=== PATIENT | male | born 1990 | race Caucasian/White ===

== ENCOUNTER 2016-12-06 07:39 | Emergency (ER) | payer MEDICAID ==
[2016-12-06 07:55] VITALS: BP 132/88
[2016-12-06] MEDS ORDERED: LORazepam 1 MG Tab PO ONE (08:27)
[2016-12-06] MEDS ORDERED: LORazepam 1 MG Tab ONE (08:31)
--- NOTE | 2016-12-06 08:35 | EDM.PDOC ---
ED [facility] Behavioral Health - General Chief Complaint: Behavioral/Psych Stated Complaint: MENTAL EVALUATION Time Seen by Provider: 12/06/16 08:29 Source of Information: Reports: Patient Exam Limitations: Reports: No limitations - History of Present Illness INITIAL COMMENTS - FREE TEXT/NARRATIVE: 26-year-old male tends the ED with complaints of increased suicidal ideation and insomnia. Patient reports that he has had posttraumatic stress disorder diagnosis he was a child at age 3. Subsequently has had diagnoses of manic bipolar disorder. He quit taking medications a year ago due to their adverse effects. I believe it was Abilify at that time. Over the last several weeks he' s not been doing very well. He was started on Strattera 80 mg once a day one week ago and is feeling much worse. Strattera at is a stimulant in well-known to aggravate underlying depression and can precipitate manic phase of bipolar affective disorder. Apparently has a history of attention deficit disorder with hyperactivity and is told that this would settle him down but appears to have aggravated his underlying hypomania state. Patient at this time feels excessive mood swings. Suicidal ideation is present most days of the last 3 days. Doesn't have any definitive plan. Entered into a discussion with him but he he does not want to go to [place] to be admitted. Would like to try medications as an outpatient. In the meantime I'm going to start him on citalopram 20 mg in the morning and use Xanax 1 mg strength at bedtime and as needed during the day for relief of anxiety q. 8 hours when necessary. Advised to return to the ED if suicidal ideation symptoms are worsening or if he feels he is going to harm himself. Onset of Symptoms: Reports: other (Gradually getting worse over the last several weeks but much worse over the last week since starting Strattera 80 mg once a day) Duration of Symptoms: Reports: Chronic, Other (Worsening since starting Strattera 80 mg a day for) Severity: moderate Context, Behavioral Health: Reports: other (Spent in [place] for a month and not able to find employment as of yet. He is living alone.). Denies: living situation, school/work, family dynamics Associated Symptoms: Reports: anxiety, depression, decreased concentration, insomnia, suicidal thought. Denies: hallucinations, auditory, homicidal thoughts, hallucinations, visual, paranoia Treatments TROMPER: Reports: Other (see below) - SAD Persons Scale (SPS) SPS Sex: Male SPS Age: Between 18-65 Years of Age SPS Depression: Yes SPS Previous Suicide Attempts: Yes SPS Alcohol Abuse/Drug Abuse: No SPS Rational Thinking Loss: Yes SPS Social Support Deficit: No SPS Organized Suicide Plan: No SPS No Spouse/Significant Other: No SPS Sickness: No SPS Sad Person Scale Score: 4 - Related Data Allergies Allergy/AdvReac Type Severity Reaction Status Date / Time No Known Allergies Allergy Verified 12/06/16 07:48 Home Medications: Home Meds ALPRAZolam [Xanax] 1 mg PO Q8H #30 tablet 12/06/16 [Rx] Citalopram [Celexa] 20 mg PO DAILY #30 tablet 12/06/16 [Rx] atoMOXetine HCl [Strattera] 80 mg PO DAILY 12/06/16 [History] Past Medical History Psychiatric History: Reports: ADHD, Bipolar, Depression, PTSD - Past Surgical History HEENT Surgical History: Reports: Tonsillectomy Other Musculoskeletal Surgeries/Procedures:: bilaterl knee surgery Social & Family History - Tobacco Use Smoking Status *Q: Former Smoker Used Tobacco, but Quit: No - Caffeine Use Caffeine Use: Reports: None, Coffee - Recreational Drug Use Recreational Drug Use: No - Living Situation & Occupation Living situation: Reports: single Occupation: unemployed ED ROS GENERAL - Review of Systems Review Of Systems: See Below Constitutional: Reports: malaise, weakness, fatigue, decreased appetite. Denies : fever, chills, weight loss HEENT: Reports: No symptoms Respiratory: Reports: No Symptoms Cardiovascular: Reports: No symptoms Endocrine: Reports: no symptoms, fatigue GI/Abdominal: Reports: Decreased appetite : Reports: no symptoms Musculoskeletal: Reports: no symptoms Skin: Reports: no symptoms Psychiatric: Reports: Anxiety, Depression, Mood lability, Suicidal ideation Hematologic/Lymphatic: Reports: no symptoms Immunologic: Reports: no symptoms ED EXAM, BEHAVIORAL HEALTH - Physical Exam Exam: See Below Exam Limited By: No limitations General Appearance: alert, WD/WN, moderate distress (Tearful and obviously suffering quite significant mood swings with inability to decide what is best for him at this time) Throat/Mouth: Normal inspection, Normal lips, Normal teeth, Normal oropharynx Head: atraumatic, normocephalic, sinus tenderness Neck: supple, non-tender, full range of motion Respiratory/Chest: no respiratory distress, lungs clear, normal breath sounds, no accessory muscle use Cardiovascular: normal peripheral pulses, regular rate, rhythm, no edema, no murmur GI/Abdominal: normal bowel sounds, soft, non tender, no organomegaly, no distention, no abnormal bruit, no mass Back Exam: normal inspection, full range of motion Extremities: normal inspection, normal range of motion, non-tender, no pedal edema, normal capillary refill Neurological: alert, normal mood/affect, CN II-XII intact, normal cognition, normal reflexes, oriented x 3 Psychiatric: oriented, tearful, poor eye contact, suicidal thoughts. No: catholic delusions, suicidal plan, tangential thoughts, auditory hallucinations , visual hallucinations, grandiose thoughts, threatening behavior, other Skin Exam: Warm, Dry, Intact, Normal color, No rash COURSE, BEHAVIORAL HEALTH COMP - Course Vital Signs: Last Vital Signs Temp 36.9 C 12/06/16 07:50 Pulse 77 12/06/16 07:50 Resp 12 12/06/16 07:50 BP 132/88 12/06/16 07:50 Pulse Ox 100 12/06/16 07:50 Orders, Labs, Meds: Laboratory Tests 12/06/16 12/06/16 Range/Units 07:35 07:35 WBC 10.44 H (4.23-9.07) K/mm3 RBC 5.21 (4.63-6.08) M/mm3 Hgb 15.4 (13.7-17.5) gm/L Hct 46.7 (40.1-51.0) % MCV 89.6 (79.0-92.2) fl MCH 29.6 (25.7-32.2) pg MCHC 33.0 (32.2-35.5) g/dl RDW Std Deviation 40.8 (35.1-43.9) fL Plt Count 358 H (163-337) K/mm3 MPV 9.0 L (9.4-12.3) fl Neutrophils % (Manual) 51 (40-60) % Band Neutrophils % 0 (0-10) % Lymphocytes % (Manual) 32 (20-40) % Atypical Lymphs % 0 % Monocytes % (Manual) 0 L (2-10) % Eosinophils % (Manual) 17 H (0.8-7.0) % Basophils % (Manual) 0 L (0.2-1.2) Platelet Estimate Adequate RBC Morph Comment Normal Sodium 143 (136-145) mEq/L Potassium 3.9 (3.5-5.1) mEq/L Chloride 107 (98-107) mEq/L Carbon Dioxide 27 (21-32) mEq/L Anion Gap 12.9 (5-15) BUN 16 (7-18) mg/dL Creatinine 0.9 (0.7-1.3) mg/dL Est Cr Clr Drug Dosing 108.19 mL/min Estimated GFR (MDRD) > 60 (>60) mL/min BUN/Creatinine Ratio 17.8 (14-18) Glucose 82 (74-106) mg/dL Calcium 8.4 L (8.5-10.1) mg/dL Total Bilirubin 0.3 (0.2-1.0) mg/dL AST 17 (15-37) U/L ALT 38 (16-63) U/L Alkaline Phosphatase 79 (46-116) U/L Total Protein 6.6 (6.4-8.2) g/dl Albumin 3.7 (3.4-5.0) g/dl Globulin 2.9 gm/dL Albumin/Globulin Ratio 1.3 (1-2) TSH 3rd Generation 2.113 (0.358-3.74) uIU/mL Medications Discontinued Medications Generic Name Dose Route Start Last Admin Trade Name Robq PRN Reason Stop Dose Admin Lorazepam 2 mg 12/06/16 08:27 12/06/16 08:32 Ativan PO 12/06/16 08:28 2 mg ONETIME ONE Administration Lorazepam Confirm 12/06/16 08:31 12/06/16 08:48 Ativan Administered 12/06/16 08:32 Not Given Dose 2 mg .ROUTE .STK-MED ONE Re-Assessment/Re-Exam: 26-year-old male presents the ED with increased suicidal ideation thoughts. Worsened since he started Strattera a week ago. Having trouble sleeping poor appetite. Frustrated by inability to find work for the last month since she's been in [employer]. He is suffering suicidal ideation on intermittent basis but has no definitive plan to harm himself. Offered potential admission to psychiatric facility in [facility] but he feels he has not wanted to go ahead with this. He feels that he get started on some Xanax or benzodiazepines to get some sleep and rest and calm him down as he is feeling somewhat hypomania worsened by the Strattera. Decision made to start him on Xanax 1 mg twice daily first thing in the morning and bedtime. Third dose may also be taken at about 4pm if needed for anxiety. . Citalopram 20 mg once a day in the morning. Re-Assessment/Re-Exam Date: 12/06/16 (Spoke with the [facility] and his activity has a clinical consultant assigned to him. She will be in contact with him either today or tomorrow to have help set up closer followup. The Strattera of course is to be stopped.) Re-Assessment/Re-Exam Time: 09:32 (Labs are back and are completely normal including a TSH of 2.11. social worker delinquency prevention is in visit with him and I think we have a plan of action in terms that he can be followed closely by his clinical consultant. He is been on numerous medications in the past and is quite anxious about starting any new medications to control his disease process.) Departure - Departure Time of Disposition: 08:30 Disposition: Home, Self-Care 01 Clinical Impression: Depressive disorder, Anxiety Prescriptions: ALPRAZolam [Xanax] 1 mg PO Q8H #30 tablet Citalopram [Celexa] 20 mg PO DAILY #30 tablet Instructions: Panic Attacks, [id number], Dysphoria Referrals: PCP,None [Primary Care Provider] - Forms: ED Department Discharge Additional Instructions: Evaluation in the emergency room today in regards to increased psychological distress with increased anxiety lack of sleep poor appetite and suicidal ideation since introduction of Strattera one week ago. Laboratory data in the ED today was normal. I did speak with you clinical consultant donald gonzalez and she will be calling you either today or tomorrow to set up a further appointment time this to 2 changes in medications. The Strattera of course is to be stopped. It is to be replaced with citalopram 20 mg in the morning with 1 mg of Xanax in the morning if needed and a second dose of Xanax plan for bedtime. A third dose of Xanax may be taken midday such as about 4:00 in the afternoon if you are having a particularly stressful day. Follow up will be through the [facility] with your clinical consultant and Dr. Free. I was able to decrease her clinical consultant this morning and she'll be getting a call either today or tomorrow.
== END 2016-12-06 10:02 | disposition home or self-care (01) ==
LOC: JD.ED 07:39
DX: F32.9 Major depressive disorder, single episode, unspecified (principal); F41.9 Anxiety disorder, unspecified; R45.851 Suicidal ideations; Z79.899 Other long term (current) drug therapy; Z98.890 Other specified postprocedural states; Z87.891 Personal history of nicotine dependence
CPT/HCPCS: 36415; 80053; 84443; 85025; 99285; A9270; 99284